=== PATIENT | female | born 1970 | race Caucasian/White ===

== ENCOUNTER → 2021-06-29 | Outpatient (CLI) | payer OTHER ==
[2021-06-29 16:00] LABS: BASO # 0.02 K/mm3 (0.02-0.10); EOS # 0.12 K/mm3 (0.04-0.40); EOS % 0.9 % (1.0-5.0); HEMATOCRIT 48.8 % (37.0-47.0); HEMOGLOBIN 15.1 g/dL (12.5-16.0); LYMPH# 2.65 K/mm3 (1.50-4.00); MEAN CELL VOLUME 94 fl (78-100); MEAN CORPUSCULAR HEMOGLOBIN 29 pg (27-31); MEAN CORPUSCULAR HGB CONC 31 g/dL (33-37); MEAN PLATELET VOLUME 10.6 fl (7.4-10.4); MONO # 0.64 K/mm3 (0.20-0.80); NEU # 9.23 K/mm3 (1.40-6.50); PLATELET COUNT 326 K/mm3 (130-400); RED BLOOD COUNT 5.18 M/mm3 (4.10-5.30); RED CELL DISTRIBUTION WIDTH 12.7 % (11.5-14.5); WHITE BLOOD COUNT 12.7 K/mm3 (4.8-10.8)
[2021-06-29 16:06] LABS: ALBUMIN 4.1 g/dL (3.5-5.0); POTASSIUM 4.5 mmol/L (3.5-5.1)
[2021-06-29 16:07] LABS: CALCIUM 9.3 mg/dL (8.3-10.5)
[2021-06-29 16:09] LABS: TOTAL PROTEIN 7.5 g/dL (6.4-8.3)
[2021-06-29 16:11] LABS: TOTAL BILIRUBIN 0.3 mg/dL (0.2-1.2)
== END ==
LOC: LAB 15:30
PROVIDERS: Physician Assistant
DX: Z00.00 Encounter for general adult medical examination without abnormal findings (principal); E03.9 Hypothyroidism, unspecified; K90.9 Intestinal malabsorption, unspecified

== ENCOUNTER → 2022-01-16 | Outpatient (CLI) | payer OTHER | LOC: LAB 07:36 | DX: N39.0 Urinary tract infection, site not specified (principal) ==

== ENCOUNTER → 2022-07-12 | Outpatient (CLI) | payer OTHER ==
[~2022-07-12] MED LIST: PROTONIX20 M1 PO; SYNTHROID RP0.088 MG PO; VITAMIN D3125 MC3 PO; WELLBUTRIN XL300 M1 PO; ZESTRIL10 M1 PO; ZOLOFT 100MG100 MG PO
[2022-07-12 12:01] LABS: BASO # 0.05 K/mm3 (0.02-0.10); EOS # 0.16 K/mm3 (0.04-0.40); EOS % 1.6 % (1.0-5.0); HEMATOCRIT 47.6 % (37.0-47.0); HEMOGLOBIN 15.1 g/dL (12.5-16.0); LYMPH# 2.26 K/mm3 (1.50-4.00); MEAN CELL VOLUME 91 fl (78-100); MEAN CORPUSCULAR HEMOGLOBIN 29 pg (27-31); MEAN CORPUSCULAR HGB CONC 32 g/dL (33-37); MEAN PLATELET VOLUME 10.1 fl (7.4-10.4); MONO # 0.68 K/mm3 (0.20-0.80); NEU # 6.73 K/mm3 (1.40-6.50); PLATELET COUNT 323 K/mm3 (130-400); RED BLOOD COUNT 5.25 M/mm3 (4.10-5.30); RED CELL DISTRIBUTION WIDTH 13.5 % (11.5-14.5); WHITE BLOOD COUNT 9.9 K/mm3 (4.8-10.8)
[2022-07-12 13:18] LABS: POTASSIUM 4.6 mmol/L (3.5-5.1)
[2022-07-12 13:19] LABS: ALBUMIN 4.2 g/dL (3.5-5.0)
[2022-07-12 13:20] LABS: CALCIUM 9.4 mg/dL (8.3-10.5)
[2022-07-12 13:21] LABS: TOTAL PROTEIN 7.3 g/dL (6.4-8.3)
[2022-07-12 13:23] LABS: TOTAL BILIRUBIN 0.5 mg/dL (0.2-1.2)
== END ==
LOC: LAB 11:48
PROVIDERS: Physician Assistant
DX: Z51.81 Encounter for therapeutic drug level monitoring (principal); Z00.00 Encounter for general adult medical examination without abnormal findings; Z13.220 Encounter for screening for lipoid disorders; K21.9 Gastro-esophageal reflux disease without esophagitis; I10 Essential (primary) hypertension; E03.9 Hypothyroidism, unspecified; G25.81 Restless legs syndrome; G43.909 Migraine, unspecified, not intractable, without status migrainosus; K90.9 Intestinal malabsorption, unspecified

== ENCOUNTER → 2023-03-04 | Outpatient (CLI) | payer OTHER ==
[~2023-03-04] VITALS: Ht 157.5 cm; Wt 76.6 kg
[2023-03-04 07:40] VITALS: BP 106/71
[2023-03-04 08:30] VITALS: BP 106/74
[2023-03-04 11:18] VITALS: BP 105/73
== END ==
LOC: AMSURD 07:20
DX: R11.2 Nausea with vomiting, unspecified (principal)
CPT/HCPCS: J0780; J1200; J7120